=== PATIENT | male | born 1965 ===

== ENCOUNTER 2017-04-17 23:04 | Emergency (ER) | payer OTHER ==
[2017-04-17 23:28] VITALS: TEMP 97.8
[2017-04-17] MEDS ORDERED: Sodium Chloride 0.9% 1,000 ML IV ONE ×2 (23:43)
--- NOTE | 2017-04-17 23:47 | C.PDOC ---
History Of Present Illness Patient is a 51 y/o male who presents to the ED with complaints of diarrhea x5 and vomiting x5 since approximately 6pm today after eating at work. Patient reports feeling weakness and dizziness; denies any abdominal pain. Chief Complaint (Nursing): GI Problem History Per: Patient History/Exam Limitations: no limitations Onset/Duration Of Symptoms: Hrs (since approximately 6:00pm today. ) Current Symptoms Are (Timing): Still Present Associated Symptoms: Vomiting, Diarrhea. denies: Fever, Chills Recent travel outside of the [place]: No Past Medical History Reviewed: Historical Data, Nursing Documentation, Vital Signs Vital Signs: Last Vital Signs Temp 97.8 F 04/18/17 03:22 Pulse 80 04/18/17 03:22 Resp 14 04/18/17 03:22 BP 110/70 04/18/17 03:22 Pulse Ox 98 04/18/17 03:22 - Medical History PMH: No Chronic Diseases Surgical History: No Surg Hx Family History: States: Unknown Family Hx - Social History Hx Alcohol Use: No Hx Substance Use: No - Immunization History Hx Tetanus Toxoid Vaccination: No Hx Influenza Vaccination: No Hx Pneumococcal Vaccination: No Review Of Systems Constitutional: Positive for: Weakness. Negative for: Fever, Chills Cardiovascular: Negative for: Chest Pain, Palpitations Respiratory: Negative for: Shortness of Breath Gastrointestinal: Positive for: Vomiting, Diarrhea. Negative for: Abdominal Pain Neurological: Positive for: Weakness, Dizziness Physical Exam - Physical Exam Appears: Well, Non-toxic Skin: Normal Color, Warm, Dry Head: Atraumatic, Normacephalic Oral Mucosa: Moist Chest: Symmetrical Cardiovascular: Rhythm Regular, No Murmur Respiratory: Normal Breath Sounds, No Rales, No Rhonchi, No Wheezing Gastrointestinal/Abdominal: Soft, No Tenderness Extremity: Normal ROM (x4) Neurological/Psych: Oriented x3, Normal Speech, Normal Cognition ED Course And Treatment - Laboratory Results Result Diagrams: 04/18/17 00:07 04/18/17 00:07 O2 Sat by Pulse Oximetry: 100 (room air) Pulse Ox Interpretation: Normal Progress Note: Blood work and UA ordered; Zofran and IV fluids administered. Disposition Counseled Patient/Family Regarding: Diagnosis - Disposition Referrals: [facility] [Outside] Disposition: HOME/ ROUTINE Disposition Time: 03:35 Condition: STABLE Prescriptions: Ondansetron ODT [Zofran ODT] 1 odt PO BID PRN #6 odt PRN Reason: Nausea/Vomiting Instructions: Clear Liquid Diet (ED), Gastroenteritis (ED), Acute Nausea and Vomiting (ED), Acute Diarrhea (ED) Forms: [employer] ([place]) - POA Present On Arrival: None - Clinical Impression Clinical Impression: Gastroenteritis - Scribe Statement The provider has reviewed the documentation as recorded by the Scribe Cassi Burnett All medical record entries made by the Neryibcharo were at my direction and personally dictated by me. I have reviewed the chart and agree that the record accurately reflects my personal performance of the history, physical exam, medical decision making, and the department course for this patient. I have also personally directed, reviewed, and agree with the discharge instructions and disposition.
[2017-04-18 00:10] LABS: BASO # 0.1 K/uL (0.0-0.2); BASO % 0.5 % (0.0-2.0); EOS # 0.2 K/uL (0.0-0.7); LYMPH # 0.3 K/uL (1.0-4.3); MONO # 0.5 K/uL (0.0-0.8); NRBC % 0.1 % (0.0-2.0)
[2017-04-18] MEDS ORDERED: Sodium Chloride 0.9% 1,000 ML ONE (00:14)
[2017-04-18 00:28] LABS: HEMATOCRIT 45.5 % (35.0-51.0); MEAN CELL VOLUME 64.4 fL (80.0-94.0); MEAN CORPUSCULAR HEMOGLOBIN 19.8 pg (27.0-31.0); MEAN CORPUSCULAR HGB CONC 30.8 g/dL (33.0-37.0); PLATELET COUNT 291 K/uL (130-400); RED CELL DISTRIBUTION WIDTH 16.9 % (11.5-14.5)
[2017-04-18 00:29] LABS: EOS % 1.5 % (0.0-4.0); LYMPH % 2.2 % (20.0-40.0)
[2017-04-18 00:55] LABS: ALKALINE PHOSPHATASE 73 U/L (38-126); ALT/SGPT 26 U/L (21-72); AST/SGOT 34 U/L (17-59); BILIRUBIN,TOTAL 1.2 mg/dL (0.2-1.3); BLOOD UREA NITROGEN 17 mg/dL (9-20); CALCIUM 9.3 mg/dl (8.6-10.4); CARBON DIOXIDE 18 mmol/L (22-30); CHLORIDE 105 mmol/L (98-107); GFR AFRICAN-AMERICAN > 60; GLUCOSE,RANDOM 134 mg/dL (75-110); SODIUM 141 mmol/L (132-148); TOTAL PROTEIN 8.3 g/dL (6.3-8.3)
[2017-04-18 00:58] LABS: POTASSIUM 4.4 mmol/L (3.6-5.2)
[2017-04-18 01:00] LABS: BASOPHIL 1 % (0-2); BLASTS 1 % (0-0); EOSINOPHIL 4 % (0-4); NEUTROPHIL 87 % (50-75); TOTAL CELLS COUNTED 100
[2017-04-18] MEDS ORDERED: Sodium Chloride 0.9% 2,000 ML ONE (02:25)
[2017-04-18] MEDS ORDERED: Sodium Chloride 0.9% 1,000 ML IV ONE (02:28)
[2017-04-18 02:29] LABS: RBC URINE 1 /hpf (0-3); URINE BILIRUBIN NEGATIVE (NEGATIVE); URINE BLOOD NEGATIVE (NEGATIVE); URINE COLOR Yellow (YELLOW); URINE GLUCOSE (UA) NORMAL (Normal); URINE KETONE TRACE mg/dL (NEGATIVE); URINE LEUKOCYTE ESTERASE NEG Leu/uL (Negative); URINE PROTEIN NEGATIVE (NEGATIVE); URINE UROBILINOGEN NORMAL mg/dL (0.2-1.0); WBC URINE 1 /hpf (0-5)
[2017-04-18 03:22] VITALS: BP 110/70; PULSE 80; RESP 14
[2017-04-18 03:36] VITALS: O2SAT 100
== END 2017-04-18 03:22 | disposition home or self-care (01) ==
LOC: C.ER 23:04
DX: K52.9 Noninfective gastroenteritis and colitis, unspecified (principal)
CPT/HCPCS: 80053; 81001; 83690; 85025; 96361; 96374; 99283; J2405; J7040